=== PATIENT | male | born 2000 | race Caucasian/White ===

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

== ENCOUNTER 2022-03-17 08:31 | Emergency (ER) | payer MEDICAID, SELFPAY ==
[2022-03-17 08:46] VITALS: BP 143/74; PULSE 81; RESP 15; TEMP 36.7; O2SAT 100; BMI 49.6
--- NOTE | 2022-03-17 08:52 | EXP.UTC ---
Discharge Plan Disposition Patient Disposition: Home, Self-Care Condition: Good Prescriptions Prescriptions: New azithromycin [Zithromax] 250 mg tablet 250 mg PO UD DOSE PK Qty: 6 0RF Rx Instructions: Take two (2) tablets today, then one (1) tablet days #2 thru #5 [id number]-ykndmgagh-MP [Bromfed DM] 2-30-10 mg/5 mL Syrup 5 ml PO Q6H PRN (Reason: Cough) Qty: 240 0RF methylprednisolone 4 mg Tablets,Dose Pack 4 mg PO DIRECTED Qty: 21 0RF No Action albuterol sulfate 90 mcg/actuation HFA aerosol inhaler 2 puff INHALATION Q4H PRN (Reason: soa/asthma) hydroxyzine pamoate 25 MG capsule 25 mg PO TID PRN (Reason: Itching) 7 Days Qty: 21 0RF Rx Instructions: Take up to three times a day for itching. methylprednisolone 4 MG tablets,dose pack 4 mg PO DIRECTED 6 Days Qty: 21 0RF ondansetron 4 MG tablet,disintegrating 4 mg PO Q8HP PRN (Reason: Nausea) Qty: 20 0RF cyclobenzaprine 10 MG tablet 10 mg PO BIDP PRN (Reason: Muscle Spasm) Qty: 20 0RF Referrals Follow up/Referrals: Luis E Morales APRN [Primary Care Provider] - See instructions Activity Restrictions/Add. Instructions Additional Instructions/Restrictions: Drink plenty of fluids. Take tylenol or ibuprofen for pain or fever. Take the medications as directed. Follow up with your regular doctor. GO TO THE ER FOR ANY WORSENING SYMPTOMS Clinical Impressions Clinical Impression: Pharyngitis Instructions Patient Instructions: DI for Strep Throat, Strep Throat Discharge ED Provider: Efra Alcazar [facility] HPI General Stated complaint: possible strep Mode of Arrival: Ambulatory Source of Information: Parent(s) Limitations: No Limitations Time Seen by Provider: 03/17/22 08:52 Description of Symptoms (Recalled from Triage Doc. by RN): pt brought in with c/o sore throat ongoing for 3 days HEENT Symptoms (Recalled from RN notes): Yes Resp Symptoms (Recalled from RN notes): No Skin Symptoms (Recalled from RN notes): No MS Symptoms (Recalled from RN notes): No Functional Status (Recalled from RN notes): n/a History of Present Illness Provider Complaint: He c/o sore throat, chills, and feeling bad for the past 2 days. Related Data Home Medications Medication Instructions Recorded Confirmed albuterol sulfate 90 mcg/actuation 2 puff inhalation Q4H PRN 10/14/17 12/06/18 aerosol inhaler soa/asthma Previous Rx's Medication Instructions Recorded hydroxyzine pamoate 25 mg capsule 25 mg PO TID PRN Itching 7 days 08/07/21 #21 caps cyclobenzaprine 10 mg tablet 10 mg PO BIDP PRN Muscle Spasm #20 10/14/21 tabs methylprednisolone 4 mg tablets in 4 mg PO DIRECTED 6 days #21 10/14/21 a dose pack packets ondansetron 4 mg disintegrating 4 mg PO Q8HP PRN Nausea #20 tabs 10/14/21 tablet azithromycin 250 mg tablet 250 mg PO UD DOSE PK #6 tabs 03/17/22 (Zithromax) oyabemivjjccnbm-uvchuqxbjyobojl-CE 5 ml PO Q6H PRN Cough #240 mL 03/17/22 2 mg-30 mg-10 mg/5 mL oral syrup (Bromfed DM) methylprednisolone 4 mg tablets in 4 mg PO DIRECTED #21 tabs 03/17/22 a dose pack Allergies Allergy/AdvReac Type Severity Reaction Status Date / Time No Known Allergies Allergy Verified 03/17/22 08:48 Worker's Comp Is this a Worker's Comp case?: No PFSH PFSH Social History Smoking Status: Never smoker alcohol intake: never substance use type: denies use current occupational status: student Travel in the last 8 weeks: None ROS Obtained: Yes All systems reviewed & no additional complaints except as documented Constitutional Constitutional: Reports chills and Reports fever(s) Eyes Eyes: Denies eye discharge ENT Ears, Nose, Mouth, and Throat: Reports as per HPI Cardiovascular Cardiovascular: Denies chest pain Respiratory Respiratory: Denies chest congestion and Reports cough Gastrointestinal Gastrointestingal: Reports nausea
[2022-03-17 08:54] LABS: UTC Strep Screen (Rapid) Negative (Negative)
[2022-03-17 09:37] VITALS: BP 143/74; PULSE 81; RESP 15; TEMP 36.7
== END 2022-03-17 09:39 | disposition home or self-care (01) ==
PROVIDERS: Emergency Provider Nurse Practitioner Family; PCP Nurse Practitioner Family
DX: J02.9 Acute pharyngitis, unspecified (principal)
CPT/HCPCS: 87880; 99212; G0463

== ENCOUNTER 2023-03-08 14:04 | Emergency (ER) | payer MEDICAID, SELFPAY ==
[2023-03-08 14:15] VITALS: BP 139/88; PULSE 84; RESP 18; TEMP 37; O2SAT 100; BMI 37.2
--- NOTE | 2023-03-08 14:27 | EXP.UTC ---
Discharge Plan Disposition Patient Disposition: Home, Self-Care Condition: Good Prescriptions Prescriptions: No Action albuterol sulfate 90 mcg/actuation HFA aerosol inhaler 2 puff INHALATION Q4H PRN (Reason: soa/asthma) hydroxyzine pamoate 25 MG capsule 25 mg PO TID PRN (Reason: Itching) 7 Days Qty: 21 0RF Rx Instructions: Take up to three times a day for itching. methylprednisolone 4 MG tablets,dose pack 4 mg PO DIRECTED 6 Days Qty: 21 0RF ondansetron 4 MG tablet,disintegrating 4 mg PO Q8HP PRN (Reason: Nausea) Qty: 20 0RF cyclobenzaprine 10 MG tablet 10 mg PO BIDP PRN (Reason: Muscle Spasm) Qty: 20 0RF azithromycin [Zithromax] 250 mg tablet 250 mg PO UD DOSE PK Qty: 6 0RF Rx Instructions: Take two (2) tablets today, then one (1) tablet days #2 thru #5 mlffkjfsvswlhem-ibspvqobt-[place] [Bromfed DM] 2-30-10 mg/5 mL Syrup 5 ml PO Q6H PRN (Reason: Cough) Qty: 240 0RF methylprednisolone 4 mg Tablets,Dose Pack 4 mg PO DIRECTED Qty: 21 0RF Referrals Follow up/Referrals: Michael Zelaya MD [Primary Care Provider] - See instructions Activity Restrictions/Add. Instructions Additional Instructions/Restrictions: Suture removal in 7-10 days Keep clean and dry Monitor for signs of infection Clinical Impressions Clinical Impression: Need for Tdap vaccination Laceration of left index finger Qualifiers: Encounter type: initial encounter Damage to nail status: without damage Foreign body presence: without foreign body Qualified Code(s): S61.211A - Laceration without foreign body of left index finger without damage to nail, initial encounter Stand Alone Forms Stand Alone Forms: Work/School Release Instructions Patient Instructions: DI for Laceration Repair Discharge ED Provider: Hali Maldonado [facility] HPI General Stated complaint: [id number]@[email or web address], lac on Lt index finger Mode of Arrival: Ambulatory Source of Information: Patient Limitations: No Limitations Time Seen by Provider: 03/08/23 14:24 Description of Symptoms (Recalled from Triage Doc. 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 Onset (ago): hour(s) (1) Location: left and upper extremity Relieving factors: none Exacerbating factors: none Associated symptoms: denies other symptoms Treatments prior to arrival: none Related Data Home Medications Medication Instructions Recorded Confirmed albuterol sulfate 90 mcg/actuation 2 puff inhalation Q4H PRN 10/14/17 12/06/18 aerosol inhaler soa/asthma Previous Rx's Medication Instructions Recorded hydroxyzine pamoate 25 mg capsule 25 mg PO TID PRN Itching 7 days 08/07/21 #21 caps cyclobenzaprine 10 mg tablet 10 mg PO BIDP PRN Muscle Spasm #20 10/14/21 tabs methylprednisolone 4 mg tablets in 4 mg PO DIRECTED 6 days #21 10/14/21 a dose pack packets ondansetron 4 mg disintegrating 4 mg PO Q8HP PRN Nausea #20 tabs 10/14/21 tablet azithromycin 250 mg tablet 250 mg PO UD DOSE PK #6 tabs 03/17/22 (Zithromax) jqaucqbaexvcsmx-kqynrmwcgzjtxcl-KJ 5 ml PO Q6H PRN Cough #240 mL 03/17/22 2 mg-30 mg-10 mg/5 mL oral syrup (Bromfed DM) methylprednisolone 4 mg tablets in 4 mg PO DIRECTED #21 tabs 03/17/22 a dose pack Allergies Allergy/AdvReac Type Severity Reaction Status Date / Time No Known Allergies Allergy Verified 03/17/22 08:48 Worker's Comp Is this a Worker's Comp case?: No [facility] Disclaimer: The information contained in this section may have been updated after the patient was seen, as this information can be updated by other users. Social History (Reviewed
[2023-03-08 14:55] VITALS: BP 139/88; PULSE 84; RESP 18; TEMP 37; O2SAT 100
== END 2023-03-08 15:02 | disposition home or self-care (01) ==
PROVIDERS: Emergency Provider Physician Assistant; PCP Emergency Medicine
DX: S61.211A Laceration without foreign body of left index finger without damage to nail, initial encounter (principal); W26.8XXA Contact with other sharp object(s), not elsewhere classified, initial encounter
CPT/HCPCS: 12001; 90715; 96372; 99213; 99214; G0463

== ENCOUNTER 2023-06-26 09:34 | Emergency (ER) | payer MEDICAID, SELFPAY ==
[2023-06-26 09:45] VITALS: BP 149/95; PULSE 95; RESP 18; TEMP 36.8; O2SAT 97; BMI 37.2
[2023-06-26 09:51] LABS: Influenza A, PCR Not Detected (NotDetected); Influenza B, PCR Not Detected (NotDetected)
--- NOTE | 2023-06-26 09:55 | ED_ITS ---
Discharge Plan Disposition Patient Disposition: Home, Self-Care Condition: Good Prescriptions Prescriptions: No Action albuterol sulfate 90 mcg/actuation HFA aerosol inhaler 2 puff INHALATION Q4H PRN (Reason: soa/asthma) Referrals Follow up/Referrals: Provider,Referral, MD [Primary Care Provider] - See instructions Activity Restrictions/Add. Instructions Additional Instructions/Restrictions: *Monitor Temp, Over the counter Motrin or Tylenol as directed/as needed Tylenol every 4 hours and Motrin every 6 hours (as long as your family doctor has told you that you can take it) for fever or pain. and straight to ER if unable to lower temp less than 101.0 after medication given *Warm salt water gargles may help to soothe the throat *Throat Lozenges? *Warm fluids like tea with honey may help to soothe the throat? *Sleep elevated *Humidifier/Vaporizer Follow up IMMEDIATELY for new or worsening symptoms or no Noticeable improvement over the next 48-72 hours. 911 for difficulty breathing or swallowing You were tested for today for COVID19 your test result should be back in the next few hours, you may check your results on the [facility] for your results if your COVID test is positive you must Quarantine for 5 days Clinical Impressions Clinical Impression: Viral syndrome Stand Alone Forms Stand Alone Forms: Work/School Release Instructions Patient Instructions: DI for COVID-19 (Suspected or Confirmed ) Discharge ED Provider: Germania Hernandez [facility] [place] HPI General Stated complaint: cough, runny nose, SOA, Pos Home covid test Mode of Arrival: Ambulatory Source of Information: Patient Limitations: No Limitations Time Seen by Provider: 06/26/23 09:55 Description of Symptoms (Recalled from Triage Doc. by RN): Pt tested at home and was positive. He wanted to get tested for work. HEENT Symptoms (Recalled from RN notes): Yes Resp Symptoms (Recalled from RN notes): No Skin Symptoms (Recalled from RN notes): No MS Symptoms (Recalled from RN notes): No Functional Status (Recalled from RN notes): n/a History of Present Illness Provider Complaint: Patient states that him and several other members of his household has been sick and he took a home COVID test and it was positive but work made him come in to get tested to show a positive result so he came States he has been having body aches, chills and nasal congestion Related Data Home Medications Medication Instructions Recorded Confirmed albuterol sulfate 90 mcg/actuation 2 puff inhalation Q4H PRN 10/14/17 06/26/23 aerosol inhaler soa/asthma Allergies Allergy/AdvReac Type Severity Reaction Status Date / Time No Known Allergies Allergy Verified 06/26/23 09:53 Worker's Comp Is this a Worker's Comp case?: No PFSH PFS Disclaimer: The information contained in this section may have been updated after the patient was seen, as this information can be updated by other users. Social History Smoking Status: Never smoker alcohol intake: never substance use type: denies use current occupational status: student Travel in the last 8 weeks: None ROS Obtained: Yes All systems reviewed & no additional complaints except as documented and Yes Systems reviewed as appropriate & no additional complaints except as documented Constitutional Constitutional: Reports system reviewed and no additional complaints, except as documented, Reports as per HPI, Reports body ache, Reports chills and Reports headache(s) ENT Ears, Nose, Mouth, and Throat: Reports system reviewed and no additional complaints, except as documented, Reports as per HPI, Reports headache(s) and Reports nasal congestion Cardiovascular Cardiovascular: Reports system reviewed and no additional complaints, except as documented and Reports as per HPI Respiratory Respiratory: Reports system reviewed and no additional complaints, except as documented and Reports as per HPI Gastrointestinal Gastrointestingal: Reports system reviewed and no additional complaints, except as documented and as per HPI Neurologic Neurologic: Reports headache(s) Physical Exam General General appearance: alert and in no apparent distress ENT ENT exam: Present mucous membranes moist Respiratory Respiratory exam: Present normal lung sounds bilaterally; Absent respiratory distress or wheezes Cardiovascular Cardiovascular exam: Present regular rate, normal rhythm and normal heart sounds Abdominal Exam Abdominal exam: Present soft and normal bowel sounds; Absent distention or tenderness Neurological Exam Neurological exam: Present alert, oriented X3 and normal gait Medical Decision Making Raciel Inquiry Pt receiving controlled substance: No Raciel was queried for this patient: No Vital Signs: 06/26/23 09:45 Temperature 98.2 F Temperature Source Oral Pulse Rate [Right Radial] 95 H Respiratory Rate 18 Blood Pressure [Right Arm] 149/95 H Blood Pressure Mean [Right Arm] 113 Blood Pressure Source [Right Arm] Automatic Cuff Blood Pressure Position [Right Arm] Sitting 02 Sat by Pulse Oximetry 97 Oxygen Delivery Method Room Air Orders (Tests/Meds): ORDERS Category Date Time Status Rapid PCR Covid and Flu A/B Stat Lab 06/26/23 09:48 Received
[2023-06-26 10:04] VITALS: BP 149/95; PULSE 95; RESP 18; TEMP 36.8; O2SAT 97
[2023-06-26 10:25] LABS: Coronavirus 19, PCR Detected (NotDetected)
== END 2023-06-26 10:04 | disposition home or self-care (01) ==
PROVIDERS: Emergency Provider Nurse Practitioner
DX: U07.1 COVID-19 (principal); R51.9 Headache, unspecified; R68.83 Chills (without fever); R09.81 Nasal congestion; M79.18 Myalgia, other site
CPT/HCPCS: 87636; 99212; 99213; G0463